=== PATIENT | female | born 1960 | race Caucasian/White ===

== ENCOUNTER → 2018-04-06 12:39 | Outpatient (CLI) | payer OTHER, SELFPAY ==
--- NOTE | 2018-04-06 13:03 | US_ITS ---
US thyroid HISTORY: Follow-up thyroid nodules, dysphasia ITS.REASON: THYROMEGALY ORDERING PHYSICIAN: Tsering Jones PATIENT AGE: 58 years Comparison: 05/15/2015 FINDINGS: The isthmus is slightly thickened 5 mm. There is a solid 1.1 x 0.7 cm nodule within the isthmus not significantly changed. This is hypervascular. The right lobe measures 4.6 x 2.2 x 2.3 cm. The right lobe is 4.6 x 2.2 x 2.3 cm. There is heterogeneous echogenicity. 4 mm cyst upper pole 9 x 5 mm solid nodule with heterogeneous echogenicity mid polar region previously 0.7 x 0.3 cm Lobulated cystic lesion midpole at 0.8 x 0.5 cm which is developed in the interval. 0.7 x 0.4 cm solid appearing nodule in the lower pole not significant change. Mixed 0.5 x 0.6 cm nodule in the lower pole 0.6 cm mixed nodule be lower pole The left lobe is 4.3 x 1.9 x 1.3 cm. 3 mm hypoechoic nodule upper pole 5 mm hypoechoic nodule mid polar region with central echogenic focus not readily apparent on the previous exam. 4 mm cystic nodule lower pole not apparent previously. IMPRESSION: Enlarged thyroid gland with multiple bilateral thyroid nodules as detailed above. The dominant nodule within the isthmus is not significantly changed
[2018-04-06 14:34] LABS: Alanine Aminotransferase 39 U/L (12-78); Albumin Level 3.7 gm/dL (3.4-5.0); Alkaline Phosphatase 87 U/L (46-116); Anion Gap 10.9 mEq/L (5-15); Aspartate Amino Transferase 26 U/L (15-37); Bilirubin,Total 0.6 mg/dL (0.2-1.0); Blood Urea Nitrogen 13 mg/dL (7-18); Calcium 9.2 mg/dL (8.5-10.1); Carbon Dioxide 30 mmol/L (21.0-32.0); Chloride 102 mmol/L (98-107); Creatinine,Serum 0.89 mg/dL (0.55-1.02); Estimated Glomerular Filt Rate 65 ml/min (>60); Free Thyroxine Index 3.9 ug/dL (5.93-13.13); GFR (African American) 79 ML/MIN (>60); Globulin 3.8 gm/dl (1.3-3.2); Glucose 89 mg/dL (74-106); Potassium 3.9 mmoL/L (3.5-5.1); Sodium 139 mmol/L (136-145); T4 (Thyroxine) 11.4 ug/dl (4.7-13.3); Thyroid Stimulating Hormone 1.75 uIU/ml (0.358-3.740); Total Protein,Serum 7.5 gm/dL (6.4-8.2); Triiodothryronine (T3) Uptake 34 % (31-39)
[2018-04-06 15:09] LABS: Basophils % 0.5 % (0.1-2.0); Eosinophils # 0.1 K/mm3 (0.0-0.4); Eosinophils % 1.1 % (0.1-12.0); Hematocrit 43.9 % (37.0-47.0); Hemoglobin 14.7 g/dL (12.2-16.2); Lymphocytes # 2.1 K/mm3 (0.7-4.5); Lymphocytes % 27.1 K/mm3 (10-50); Mean Corpuscular HGB Conc 33.5 g/dL (31.8-35.4); Mean Corpuscular Hemoglobin 28.6 pg (27.0-31.2); Mean Corpuscular Volume 85.3 fl (81-99); Mean Platelet Volume 9.2 fl (7.4-10.4); Monocytes # 0.3 K/mm3 (0.1-1.0); Monocytes % 3.9 % (1.7-9.3); Neutrophils # 5.1 K/mm3 (1.8-7.8); Neutrophils % 67.2 % (37.0-80.0); Platelet Count 244 K/mm3 (142-424); Red Blood Count 5.15 M/mm3 (4.20-5.40); Red Cell Distribution Width 12.8 % (11.5-17.5); White Blood Count 7.6 K/mm3 (4.8-10.8)
[2018-04-07 18:20] LABS: Thyroid Peroxidase Antibodies 10 IU/mL (0-34); Vitamin D 25 Hydroxy 18.7 ng/mL (30.0-100.0)
[2018-04-09 03:30] LABS: Calcitonin <2.0 pg/mL (0.0-5.0)
[2018-04-10 06:11] LABS: Thyroid Stimulating Immunoglob <0.10 IU/L (0.00-0.55)
== END ==
PROVIDERS: Family Provider Internal Medicine Adolescent Medicine; PCP Nurse Practitioner Family; Visit Provider Nurse Practitioner Family
DX: E04.9 Nontoxic goiter, unspecified (principal)
CPT/HCPCS: 36415; 76536; 80053; 82308; 82652; 84436; 84443; 84445; 84479; 85025; 86376

== ENCOUNTER → 2019-02-27 11:19 | Outpatient (CLI) | payer OTHER, SELFPAY ==
[2019-02-27 13:38] LABS: Basophils % 0.6 % (0.1-2.0); Eosinophils # 0.1 K/mm3 (0.0-0.4); Eosinophils % 0.8 % (0.1-12.0); Hematocrit 38.8 % (37.0-47.0); Hemoglobin 13.1 g/dL (12.2-16.2); Lymphocytes # 1.9 K/mm3 (0.7-4.5); Lymphocytes % 27.4 % (10-50); Mean Corpuscular HGB Conc 33.8 g/dL (31.8-35.4); Mean Corpuscular Hemoglobin 28.8 pg (27.0-31.2); Mean Corpuscular Volume 85.3 fl (81-99); Mean Platelet Volume 8.4 fl (7.4-10.4); Monocytes # 0.4 K/mm3 (0.1-1.0); Monocytes % 5.3 % (1.7-9.3); Neutrophils # 4.6 K/mm3 (1.8-7.8); Neutrophils % 65.9 % (37.0-80.0); Platelet Count 224 K/mm3 (142-424); Red Blood Count 4.55 M/mm3 (4.20-5.40); Red Cell Distribution Width 12.9 % (11.5-17.5); White Blood Count 6.9 K/mm3 (4.8-10.8)
[2019-02-27 15:35] LABS: Alanine Aminotransferase 32 U/L (12-78); Albumin Level 3.6 gm/dL (3.4-5.0); Alkaline Phosphatase 77 U/L (46-116); Anion Gap 13.5 mEq/L (5-15); Aspartate Amino Transferase 21 U/L (15-37); Bilirubin,Total 0.5 mg/dL (0.2-1.0); Blood Urea Nitrogen 11 mg/dL (7-18); Calcium 9.2 mg/dL (8.5-10.1); Carbon Dioxide 27 mmol/L (21.0-32.0); Chloride 104 mmol/L (98-107); Chol/HDL Ratio 4.4 (1-3.5); Cholesterol 219 mg/dL (140-200); Creatinine,Serum 0.89 mg/dL (0.55-1.02); Estimated Glomerular Filt Rate 65 ml/min (>60); Free T4 (Free Thyroxine) 1.26 ng/dl (0.76-1.46); GFR (African American) 79 ML/MIN (>60); Globulin 3.5 gm/dl (1.3-3.2); Glucose 93 mg/dL (74-106); HDL Cholesterol 50 mg/dL (29-89); LDL Cholesterol 150 mg/dL (0-130); Potassium 3.5 mmoL/L (3.5-5.1); Sodium 141 mmol/L (136-145); Thyroid Stimulating Hormone 1.38 uIU/ml (0.358-3.740); Total Protein,Serum 7.1 gm/dL (6.4-8.2); Triglycerides 95 mg/dL (30-200); VLDL Cholesterol 19 mg/dL (0-40)
[2019-03-01 09:45] LABS: Vitamin B12 443 pg/mL (232-1245)
== END ==
PROVIDERS: PCP Nurse Practitioner Family; Visit Provider Nurse Practitioner Family
DX: E04.1 Nontoxic single thyroid nodule (principal); E04.9 Nontoxic goiter, unspecified; E78.5 Hyperlipidemia, unspecified; E55.9 Vitamin D deficiency, unspecified; I10 Essential (primary) hypertension; R53.81 Other malaise
CPT/HCPCS: 36415; 80053; 80061; 82607; 82652; 84439; 84443; 85025

== ENCOUNTER → 2020-04-08 09:29 | Outpatient (CLI) | payer OTHER, SELFPAY ==
[2020-04-08 13:34] LABS: Basophils # 0.1 K/mm3 (0-0.2); Basophils % 1.2 % (0.1-2.0); Eosinophils # 0.1 K/mm3 (0.0-0.4); Eosinophils % 1.7 % (0.1-12.0); Hematocrit 43.7 % (37.0-47.0); Hemoglobin 14.1 g/dL (12.2-16.2); Lymphocytes % 28.7 % (10-50); Mean Corpuscular HGB Conc 32.4 g/dL (31.8-35.4); Mean Corpuscular Hemoglobin 28.9 pg (27.0-31.2); Mean Corpuscular Volume 89.3 fl (81-99); Monocytes # 0.4 K/mm3 (0.1-1.0); Monocytes % 5.1 % (1.7-9.3); Neutrophils # 4.3 K/mm3 (1.8-7.8); Neutrophils % 63.4 % (37.0-80.0); Platelet Count 235 K/mm3 (142-424); Red Cell Distribution Width 12.6 % (11.5-17.5); White Blood Count 6.8 K/mm3 (4.8-10.8)
[2020-04-08 13:51] LABS: Chloride 100 mmol/L (98-107); Potassium 3.9 mmoL/L (3.5-5.1); Sodium 138 mmol/L (136-145)
[2020-04-08 13:53] LABS: Alanine Aminotransferase 20 U/L (12-78); Alkaline Phosphatase 70 U/L (38-126); Aspartate Amino Transferase 29 U/L (14-36); Bilirubin,Total 0.6 mg/dl (0.2-1.3); Blood Urea Nitrogen 13 mg/dl (7-17); Estimated Glomerular Filt Rate 64 ml/min (>60); GFR (African American) 77 ML/MIN (>60)
[2020-04-08 13:54] LABS: Albumin Level 3.8 g/dl (3.5-5.0); Albumin/Globulin Ratio 1.3 (1.1-1.8); Anion Gap 10.9 mEq/L (5-15); Calcium 9.7 mg/dl (8.4-10.2); Carbon Dioxide 31 mmol/L (22.0-30.0); Chol/HDL Ratio 4.3 (1-3.5); Cholesterol 228 mg/dl (140-200); Glucose 104 mg/dl (74-100); HDL Cholesterol 53 mg/dl (40-60); Total Protein,Serum 6.8 g/dl (6.3-8.2); Triglycerides 137 mg/dl (30-150); VLDL Cholesterol 27 mg/dL (0-40)
[2020-04-08 18:09] LABS: 25-OH Vitamin D, Total 25.5 ng/mL (30-100)
== END ==
PROVIDERS: Visit Provider Internal Medicine Adolescent Medicine
DX: E78.5 Hyperlipidemia, unspecified (principal); E55.9 Vitamin D deficiency, unspecified; I10 Essential (primary) hypertension
CPT/HCPCS: 36415; 80053; 80061; 82306; 85025

== ENCOUNTER → 2021-02-09 18:22 | Outpatient (CLI) | payer OTHER, SELFPAY ==
[2021-02-09 19:09] LABS: Basophils # 0.1 K/mm3 (0-0.2); Basophils % 1.7 % (0.1-2.0); Eosinophils # 0.1 K/mm3 (0.0-0.4); Eosinophils % 1.5 % (0.1-12.0); Hematocrit 41.9 % (37.0-47.0); Hemoglobin 14.5 g/dL (12.2-16.2); Lymphocytes # 1.7 K/mm3 (0.7-4.5); Lymphocytes % 24.1 % (10-50); Mean Corpuscular HGB Conc 34.6 g/dL (31.8-35.4); Mean Corpuscular Hemoglobin 29.1 pg (27.0-31.2); Mean Corpuscular Volume 84.1 fl (81-99); Mean Platelet Volume 9.6 fl (7.4-10.4); Monocytes # 0.4 K/mm3 (0.1-1.0); Monocytes % 5.1 % (1.7-9.3); Neutrophils # 4.8 K/mm3 (1.8-7.8); Neutrophils % 67.6 % (37.0-80.0); Platelet Count 235 K/mm3 (142-424); Red Blood Count 4.98 M/mm3 (4.20-5.40); Red Cell Distribution Width 13.3 % (11.5-17.5); White Blood Count 7.2 K/mm3 (4.8-10.8)
[2021-02-09 19:14] LABS: Alanine Aminotransferase 23 U/L (12-78); Albumin Level 4.3 g/dl (3.5-5.0); Albumin/Globulin Ratio 1.4 (1.1-1.8); Alkaline Phosphatase 83 U/L (38-126); Anion Gap 14.6 mEq/L (5-15); Aspartate Amino Transferase 49 U/L (14-36); Bilirubin,Total 0.8 mg/dl (0.2-1.3); Blood Urea Nitrogen 15 mg/dl (7-17); Calcium 9.3 mg/dl (8.4-10.2); Carbon Dioxide 29 mmol/L (22.0-30.0); Chloride 100 mmol/L (98-107); Estimated Glomerular Filt Rate 64 ml/min (>60); GFR (African American) 77 ML/MIN (>60); Glucose 94 mg/dl (74-100); Potassium 3.6 mmoL/L (3.5-5.1); Sodium 140 mmol/L (136-145); Total Protein,Serum 7.3 g/dl (6.3-8.2)
[2021-02-09 19:59] LABS: Vitamin B12 353 pg/mL (239-931)
[2021-02-09 20:30] LABS: Hemoglobin A1C 5.1 % (4.0-6.0)
[2021-02-09 20:55] LABS: T4 (Thyroxine) 14.2 ug/dl (5.53-11.0); Triiodothryronine (T3) Uptake 28 % (23.5-40.5)
[2021-02-09 21:08] LABS: Thyroid Stimulating Hormone 1.06 uIU/mL (0.465-4.68)
[2021-02-09 21:37] LABS: 25-OH Vitamin D, Total 29.2 ng/mL (30-100)
== END ==
PROVIDERS: Visit Provider Internal Medicine Adolescent Medicine
DX: G60.9 Hereditary and idiopathic neuropathy, unspecified (principal); E55.9 Vitamin D deficiency, unspecified
CPT/HCPCS: 80053; 82306; 82607; 83036; 84436; 84443; 84479; 85025

== ENCOUNTER 2021-12-10 18:56 | Emergency (ER) | payer OTHER, SELFPAY ==
--- NOTE | 2021-12-10 20:06 | HMH.EDUTC ---
[facility] Clinical Impression: Viral syndrome, COVID-19, Bronchitis Disposition: Home, Self-Care Condition on Discharge: Good Instructions: DI for COVID-19 (Suspected or Confirmed ), Preventing the Spread of Coronavirus Discharge Instructions Additional Instructions: Drink plenty of fluids. Take tylenol or ibuprofen for pain or fever. Take the medications as directed. Follow up with your regular doctor. GO TO THE ER FOR ANY WORSENING SYMPTOMS Quarantine until you know the results of your covid-19 test. Notify your school or workplace of your results and follow their instructions regarding return to work/school. Prescriptions: Ondansetron [Zofran 4mg ODT] 4 mg PO Q8HP PRN #12 tab PRN Reason: Nausea Transmission Status: Received by [facility] Benzonatate [Benzonatate 100mg cap] 100 mg PO TIDP PRN #30 cap PRN Reason: Cough Transmission Status: Received by [facility] methylPREDNISolone [Medrol] 4 mg PO DIRECTED 6 Days #21 packet Transmission Status: Received by [facility] Azithromycin [Z-Shaji 250mg Tab*] 250 mg PO UD DOSE PK #6 tab Transmission Status: Received by [facility] Referrals: David Cote MD [Primary Care Provider] - Time of Disposition: 20:17 Medical Decision Making - Medical Records Medical records reviewed: No: I reviewed the patient's medical records. - Og Inquiry Pt receiving controlled substance: No Vital Signs: 12/10/21 20:15 12/10/21 20:19 Temperature 98.8 F 98.8 F Temperature Source Oral Pulse Rate 90 Pulse Rate [Left Radial] 90 Respiratory Rate 17 17 Blood Pressure 127/84 Blood Pressure [Right Arm] 127/84 Blood Pressure Mean [Right Arm] 98 02 Sat by Pulse Oximetry 96 Orders (Tests/Meds): ORDERS Category Date Time Status Covid-19 Nasal PCR ([facility]) Routine Lab 12/10/21 19:45 [place]ceived [facility] [place] - General Stated complaint: covid test Time Seen by Provider: 12/10/21 20:06 - History of Present Illness Provider Complaint: She has had body aches, low grade fever, chills and she has felt bad for the past 2 days. She took a home covid-19 test that was positive, so she came here to have a pcr test to verify that. - Related Data Previous Rx's Medication Instructions Recorded Azithromycin [Z-Shaji 250mg Tab*] 250 mg PO UD DOSE PK #6 tab 12/10/21 Benzonatate [Benzonatate 100mg 100 mg PO TIDP PRN #30 cap 12/10/21 cap] Ondansetron [Zofran 4mg ODT] 4 mg PO Q8HP PRN #12 tab 12/10/21 methylPREDNISolone [Medrol] 4 mg PO DIRECTED 6 Days #21 12/10/21 packet Allergies Allergy/AdvReac Type Severity Reaction Status Date / Time No Known Drug Allergies Allergy Unknown Unverified 06/27/17 14:49 [facility] History - Hepatitis A Screen Attestation statement:: This patient has been screened for Hepatitis A risk factors. I have reviewed the patient's past medical history: Yes ROS Obtained: Yes All systems reviewed & no additional complaints - Constitutional Constitutional: Reports as per HPI - Eyes Eyes: Denies eye discharge - ENT Ears, Nose, Mouth, and Throat: Reports as per HPI - Cardiovascular Cardiovascular: Denies chest pain - Respiratory Respiratory: Denies chest congestion, Reports cough Physical Exam - General General appearance: alert, in no apparent distress - Head Head exam: atraumatic, normocephalic, normal inspection - Eye Eye exam: Present: normal appearance, PERRL, EOMI - ENT ENT exam: Present: normal exam, normal oropharynx, mucous membranes moist, TM's normal bilaterally, normal external ear exam - Neck Neck exam: Present: normal inspection, full ROM, trachea midline. Absent: meningismus, lymphadenopathy - Chest Chest inspection: Present: normal inspection, symmetric chest wall rise. Absent: tenderness - Respiratory Respiratory exam: Present: normal lung sounds bilaterally. Absent: respiratory distress - Cardiovascular Cardi
[2021-12-10 20:15] VITALS: BP 127/84; PULSE 90; RESP 17; TEMP 37.1; O2SAT 96; BMI 31.4
[2021-12-10 20:19] VITALS: BP 127/84; PULSE 90; RESP 17; TEMP 37.1
== END 2021-12-10 20:19 | disposition home or self-care (01) ==
PROVIDERS: Emergency Provider Nurse Practitioner Family; PCP Internal Medicine Adolescent Medicine
DX: U07.1 COVID-19 (principal); J20.8 Acute bronchitis due to other specified organisms
CPT/HCPCS: 99212; C9803; G0463; U0003; U0005

== ENCOUNTER → 2021-12-29 09:30 | Outpatient (CLI) | payer OTHER, SELFPAY ==
[2021-12-28 17:10] LABS: Alanine Aminotransferase 28 U/L (12-78); Albumin Level 3.5 g/dl (3.5-5.0); Albumin/Globulin Ratio 1.3 (1.1-1.8); Alkaline Phosphatase 81 U/L (38-126); Anion Gap 7.4 mEq/L (5-15); Aspartate Amino Transferase 32 U/L (14-36); Bilirubin,Total 0.2 mg/dl (0.2-1.3); Blood Urea Nitrogen 5 mg/dl (7-17); Carbon Dioxide 32 mmol/L (22.0-30.0); Chloride 101 mmol/L (98-107); Chol/HDL Ratio 4.2 (1-3.5); Cholesterol 198 mg/dl (140-200); Estimated Glomerular Filt Rate 85 ml/min (>60); GFR (African American) 103 ML/MIN (>60); Globulin 2.7 g/dL (1.3-3.2); Glucose 92 mg/dl (74-100); HDL Cholesterol 47 mg/dl (40-60); Potassium 3.4 mmoL/L (3.5-5.1); Sodium 137 mmol/L (136-145); Total Protein,Serum 6.2 g/dl (6.3-8.2); Triglycerides 111 mg/dl (30-150); VLDL Cholesterol 22 mg/dL (0-40)
[2021-12-28 17:18] LABS: Basophils # 0.1 K/mm3 (0-0.2); Basophils % 0.8 % (0.1-2.0); Eosinophils # 0.1 K/mm3 (0.0-0.4); Eosinophils % 1.9 % (0.1-12.0); Hemoglobin 13.4 g/dL (12.2-16.2); Lymphocytes # 1.9 K/mm3 (0.7-4.5); Lymphocytes % 24.5 % (10-50); Mean Corpuscular HGB Conc 34.3 g/dL (31.8-35.4); Mean Corpuscular Volume 87.7 fl (81-99); Mean Platelet Volume 9.4 fl (7.4-10.4); Monocytes # 0.5 K/mm3 (0.1-1.0); Monocytes % 6.6 % (1.7-9.3); Neutrophils % 66.2 % (37.0-80.0); Platelet Count 233 K/mm3 (142-424); Red Blood Count 4.45 M/mm3 (4.20-5.40); Red Cell Distribution Width 13.3 % (11.5-17.5); White Blood Count 7.6 K/mm3 (4.8-10.8)
[2021-12-28 17:21] LABS: Direct LDL Cholesterol 115.18 mg/dL (100-129)
[2021-12-28 17:41] LABS: Thyroid Stimulating Hormone 0.74 uIU/mL (0.465-4.68)
[2021-12-28 18:00] LABS: Vitamin B12 974 pg/mL (239-931)
[2021-12-28 18:10] LABS: Iron 71 ug/dL (37-170)
[2021-12-28 18:19] LABS: Total Iron Binding Capacity 223 ug/dL (265-497)
[2022-01-14 17:11] LABS: 1,25 Dihydroxy Vitamin D 59 pg/mL (.); 1,25-Dihydroxy, Vitamin D-2 <10 pg/mL (.); 1,25-Dihydroxy, Vitamin D-3 59 pg/mL (.)
== END ==
PROVIDERS: Visit Provider Physician Assistant
DX: Z00.00 Encounter for general adult medical examination without abnormal findings (principal); I10 Essential (primary) hypertension; E55.9 Vitamin D deficiency, unspecified; E53.8 Deficiency of other specified B group vitamins; R53.83 Other fatigue
CPT/HCPCS: 80053; 80061; 82607; 82652; 83540; 83550; 84443; 85025

== ENCOUNTER → 2022-01-06 12:56 | Outpatient (CLI) | payer OTHER, SELFPAY ==
--- NOTE | 2022-01-06 12:56 | MR_ITS ---
FINAL REPORT CLINICAL HISTORY: Bilateral leg weakness, burning, giving out. LOW BACK PAIN FOR YEARS. FALLING FREQUENTLY. BILATERAL LEG PAIN, NUMBNESS AND TINGLING. NO INJURY OR TRAUMA. FINDINGS: Multiplanar MR imaging of the lumbar spine was performed without contrast. On the sagittal T2-weighted images, disc degeneration is seen at multiple levels. The vertebral alignment is normal. There is no evidence of fracture. The conus has an unremarkable appearance. L1-2: No significant canal stenosis or neural foraminal narrowing. L2-3: No significant canal stenosis or neural foraminal narrowing. L3-4: An annular bulge is present. There is no significant canal stenosis or neural foraminal narrowing. L4-5: An annular bulge is present. Facet arthropathy and osteophytes are present. There is moderate right and mild left neural foraminal narrowing. L5-S1: An annular bulge is present with mild right neural foraminal narrowing. IMPRESSION: Multilevel degenerative change and spondylosis. Reviewed, Interpreted and Dictated by Carlos Brand III, MD Transcribed by Valeri Hartman Authenticated and [facility]
== END ==
PROVIDERS: PCP Internal Medicine Adolescent Medicine; Visit Provider Physician Assistant
DX: G62.9 Polyneuropathy, unspecified (principal); R29.898 Other symptoms and signs involving the musculoskeletal system
CPT/HCPCS: 72148; 76376

== ENCOUNTER 2022-01-17 07:47 | Outpatient (RCR) | payer OTHER, SELFPAY ==
--- NOTE | 2022-01-17 09:51 | HMH.PTOPEV ---
PT Outpatient Evaluation Rehab PT Outpatient Evaluation Start: 01/17/22 07:55 Freq: Status: Active Protocol: Document 01/17/22 07:55 PDESERLA NENAX (Rec: 01/17/22 09:49 PDESEROUX [id number]) Electronically Signed By Kevin Evans, PT 01/17/22 07:55 Outpatient Therapy Subjective History Subjective History Pt. is a 62 year old female who presents to [facility] Outpatient Physical Therapy Services in [place] for the initial evaluation this date( 01/17/22) w/ c/o chronic and constant lumbar/BLE(L>R) P!, numbness, tingling, and falls of insidious onset that had progressively worsened since last Fall. However, pt. reports having a chronic history of LBP! and BLE numbness/tingling, but states symptoms started to worsen in bilateral hips and the lumbar spine last Fall. Pt. c/o numbness/tingling first originating in bilateral toes and feet years ago, but states symptoms began to progress superiorly towards bilateral hips and the lumbar spine last Fall. Pt. reports she was diagnosed w/ Neuropathy when symptoms first originated in bilateral toes/ft. Pt. reports symptoms worsen w/ bending over and picking up grocery bags, prolonged sitting and driving, and twisting. Pt. reports having some symptom relief w/ resting and icing the lumabr spine. Recent diagnostic imaging(MRI) positive for multi-level DDD, spondylosis, osteophytes, and disc bulges per pt. report. Pt . denies having injections for current complaint. Pt. also denies having any bowel/ bladder dysfunction at this time. Pt. also denies pacemaker, denies latex nor any medicational allergies.
== END 2022-02-01 09:27 | disposition home or self-care (01) ==
LOC: PT.CARL 07:47
PROVIDERS: PCP Internal Medicine Adolescent Medicine; Visit Provider Physician Assistant
DX: M51.36 Other intervertebral disc degeneration, lumbar region (principal)
CPT/HCPCS: 97010; 97014; 97110; 97140; 97163; G0283

== ENCOUNTER → 2023-01-09 15:52 | Outpatient (CLI) | payer OTHER, SELFPAY ==
--- NOTE | 2023-01-09 15:52 | MM_ITS ---
PROCEDURE INFORMATION: Exam: Bilateral Screening 3D Mammography Exam date and time: 01/09/2023 3:43 PM Age: 63 years old Clinical indication: Baseline. No family history of breast cancer. TECHNIQUE: Imaging protocol: Bilateral Screening tomosynthesis and 2D mammography including computer-aided detection (CAD) when performed. COMPARISON: No relevant prior studies available.If prior mammograms are provided, I am happy to add an addendum. FINDINGS: MAMMOGRAPHY: Breast composition: There are scattered areas of fibroglandular density. Mass: None. Architectural distortion: None. Calcifications: No suspicious calcifications. Asymmetric density: None. Skin thickening: None. Axillary adenopathy: None. IMPRESSION: No mammographic evidence of malignancy. Annual screening is recommended unless otherwise clinically indicated. ASSESSMENT: BI-RADS Category 1: Negative
[2023-01-09 16:46] LABS: Basophils % 0.5 % (0.1-2.0); Eosinophils # 0.2 K/mm3 (0.0-0.4); Hematocrit 44.1 % (37.0-47.0); Hemoglobin 14.5 g/dL (12.2-16.2); Lymphocytes # 2.1 K/mm3 (0.7-4.5); Lymphocytes % 26.9 % (10-50); Mean Corpuscular HGB Conc 32.8 g/dL (31.8-35.4); Mean Corpuscular Hemoglobin 28.3 pg (27.0-31.2); Mean Corpuscular Volume 86.2 fl (81-99); Mean Platelet Volume 10.2 fl (7.4-10.4); Monocytes # 0.4 K/mm3 (0.1-1.0); Monocytes % 5.5 % (1.7-9.3); Neutrophils # 5.1 K/mm3 (1.8-7.8); Neutrophils % 65.2 % (37.0-80.0); Platelet Count 235 K/mm3 (142-424); Red Blood Count 5.12 M/mm3 (4.20-5.40); White Blood Count 7.9 K/mm3 (4.8-10.8)
[2023-01-09 16:48] LABS: Alanine Aminotransferase 30 U/L (12-78); Albumin/Globulin Ratio 1.3 (1.1-1.8); Alkaline Phosphatase 94 U/L (38-126); Anion Gap 13.8 mEq/L (5-15); Aspartate Amino Transferase 40 U/L (14-36); Bilirubin,Total 0.7 mg/dl (0.2-1.3); Blood Urea Nitrogen 16 mg/dl (7-17); Calcium 9.2 mg/dl (8.4-10.2); Carbon Dioxide 28 mmol/L (22.0-30.0); Chloride 101 mmol/L (98-107); Cholesterol 259 mg/dl (140-200); Estimated Glomerular Filt Rate 63 ml/min (>60); GFR (African American) 77 ML/MIN (>60); Glucose 106 mg/dl (74-100); HDL Cholesterol 52 mg/dl (40-60); Potassium 3.8 mmoL/L (3.5-5.1); Sodium 139 mmol/L (136-145); Triglycerides 134 mg/dl (30-150); VLDL Cholesterol 27 mg/dL (0-40)
[2023-01-09 16:59] LABS: Direct LDL Cholesterol 160.22 mg/dL (100-129)
[2023-01-09 17:05] LABS: T4 (Thyroxine) 13.3 ug/dl (5.53-11.0); Triiodothryronine (T3) Uptake 31 % (23.5-40.5)
[2023-01-09 17:06] LABS: 25-OH Vitamin D, Total 53.7 ng/mL (30-100)
[2023-01-09 17:19] LABS: Thyroid Stimulating Hormone 1.79 uIU/mL (0.465-4.68)
[2023-01-09 17:38] LABS: Vitamin B12 896 pg/mL (239-931)
== END ==
PROVIDERS: PCP Family Medicine; Visit Provider Family Medicine
DX: Z00.00 Encounter for general adult medical examination without abnormal findings (principal); Z12.31 Encounter for screening mammogram for malignant neoplasm of breast; I10 Essential (primary) hypertension; E04.1 Nontoxic single thyroid nodule; R53.83 Other fatigue; E55.9 Vitamin D deficiency, unspecified; E53.8 Deficiency of other specified B group vitamins
CPT/HCPCS: 77063; 77067; 80053; 80061; 82306; 82607; 84436; 84443; 84479; 85025

== ENCOUNTER → 2023-01-09 17:02 | Outpatient (CLI) | payer OTHER, SELFPAY ==
[2023-01-11 15:07] LABS: Hemoglobin A1C 5.3 % (4.0-6.0)
== END ==
PROVIDERS: PCP Family Medicine; Visit Provider Family Medicine
DX: R73.9 Hyperglycemia, unspecified (principal)
CPT/HCPCS: 83036

== ENCOUNTER → 2023-02-15 10:36 | Outpatient (CLI) | payer OTHER, SELFPAY ==
--- NOTE | 2023-02-15 10:57 | XR_ITS ---
FINAL REPORT TECHNIQUE: 6 views of the cervical spine CLINICAL HISTORY: neck pain COMPARISON: None FINDINGS: Cervical spine 6 views: There is mild degenerative change identified in the cervical spine with multiple osteophytes. No evidence of acute fracture or dislocation is identified. There is mild bilateral C6-7 neural foraminal narrowing. There is mild left C5-6 neural foraminal narrowing. IMPRESSION: Mild degenerative change as described. Reviewed, Interpreted and Dictated by Carlos Brand III, MD Transcribed by Edwina Mitchell Authenticated and [facility]
[2023-02-15 13:20] LABS: Free T4 (Free Thyroxine) 1.11 ng/dl (0.78-2.19)
[2023-02-15 13:33] LABS: Thyroid Stimulating Hormone 1.39 uIU/mL (0.465-4.68)
[2023-02-15 14:09] LABS: Folate 6.62 ng/mL
[2023-02-16 09:19] LABS: Triiodothyronine (T3) Free 2.7 pg/mL (2.0-4.4)
== END ==
PROVIDERS: Nurse Practitioner Family; PCP Family Medicine; Visit Provider Specialist
DX: G62.9 Polyneuropathy, unspecified (principal); M54.2 Cervicalgia; R20.0 Anesthesia of skin; R20.2 Paresthesia of skin; E53.8 Deficiency of other specified B group vitamins; R94.6 Abnormal results of thyroid function studies
CPT/HCPCS: 36415; 72050; 82746; 84439; 84443; 84481

== ENCOUNTER 2024-05-10 10:22 | Outpatient (CLI) | payer OTHER, SELFPAY ==
[2024-05-10 16:35] LABS: Basophils # 0.1 K/mm3 (0-0.2); Eosinophils # 0.1 K/mm3 (0.0-0.4); Eosinophils % 1.9 % (0.1-12.0); Hematocrit 43.5 % (37.0-47.0); Hemoglobin 14.8 g/dL (12.2-16.2); Lymphocytes # 1.8 K/mm3 (0.7-4.5); Lymphocytes % 25.4 % (10-50); Mean Corpuscular Hemoglobin 29.7 pg (27.0-31.2); Mean Corpuscular Volume 87.5 fl (81-99); Mean Platelet Volume 9.4 fl (7.4-10.4); Monocytes # 0.4 K/mm3 (0.1-1.0); Monocytes % 5.6 % (1.7-9.3); Neutrophils # 4.8 K/mm3 (1.8-7.8); Neutrophils % 66.1 % (37.0-80.0); Platelet Count 230 K/mm3 (142-424); Red Blood Count 4.97 M/mm3 (4.20-5.40); Red Cell Distribution Width 13.4 % (11.5-17.5); White Blood Count 7.2 K/mm3 (4.8-10.8)
[2024-05-10 17:07] LABS: Alanine Aminotransferase 23 U/L (12-78); Albumin Level 4.2 g/dl (3.5-5.0); Albumin/Globulin Ratio 1.6 (1.1-1.8); Alkaline Phosphatase 72 U/L (38-126); Anion Gap 11.7 mEq/L (5-15); Aspartate Amino Transferase 35 U/L (14-36); Bilirubin,Total 0.8 mg/dl (0.2-1.3); Blood Urea Nitrogen 12 mg/dl (7-17); Calcium 9.2 mg/dl (8.4-10.2); Carbon Dioxide 29 mmol/L (22.0-30.0); Chloride 104 mmol/L (98-107); Chol/HDL Ratio 4.3 (1-3.5); Cholesterol 229 mg/dl (140-200); Estimated Glomerular Filt Rate 72 ml/min (>60); GFR (African American) 87 ML/MIN (>60); Globulin 2.7 g/dL (1.3-3.2); Glucose 65 mg/dl (74-100); HDL Cholesterol 53 mg/dl (40-60); Potassium 3.7 mmoL/L (3.5-5.1); Sodium 141 mmol/L (136-145); Total Protein,Serum 6.9 g/dl (6.3-8.2); Triglycerides 133 mg/dl (30-150); VLDL Cholesterol 27 mg/dL (0-40)
[2024-05-10 17:17] LABS: Direct LDL Cholesterol 156.41 mg/dL (100-129)
[2024-05-10 17:24] LABS: 25-OH Vitamin D, Total 48.2 ng/mL (30-100)
[2024-05-10 17:37] LABS: Thyroid Stimulating Hormone 2.45 uIU/mL (0.465-4.68)
[2024-05-10 17:41] LABS: Hemoglobin A1C 5.1 % (4.0-6.0)
[2024-05-10 17:57] LABS: Vitamin B12 > 1000 pg/mL (239-931)
[2024-05-10 22:57] LABS: HIV (1&2) Antibody Rapid NONREACTIVE (NONREACTIVE)
[2024-05-11 05:11] LABS: HCV Ab Non Reactive (Non Reactive)
== END 2024-05-10 23:59 | disposition home or self-care (01) ==
LOC: LAB.DROPOF 05-13 10:22
PROVIDERS: PCP Family Medicine; Visit Provider Family Medicine
DX: K21.9 Gastro-esophageal reflux disease without esophagitis (principal); E78.5 Hyperlipidemia, unspecified; E53.8 Deficiency of other specified B group vitamins; E55.9 Vitamin D deficiency, unspecified; I10 Essential (primary) hypertension
CPT/HCPCS: 80050; 80053; 80061; 82306; 82607; 83036; 84443; 85025; 86803; 87389

== ENCOUNTER 2024-05-24 09:18 | Outpatient (CLI) | payer OTHER, SELFPAY ==
--- NOTE | 2024-05-24 09:18 | US_ITS ---
FINAL REPORT CLINICAL HISTORY: HX NODULES - LARGE THYROID COMPARISON: None FINDINGS: THYROID ULTRASOUND: The right lobe of the thyroid gland measures 4.85 cm in length. The left lobe of the thyroid gland measures 3.85 cm in length. The isthmus measures 4 mm in thickness. There are multiple subcentimeter nodules bilaterally, some are hypoechoic while others are of mixed echogenicity. The dominant nodule is a 1.5 cm ovoid, hypoechoic, solid nodule, a TI-RADS category 4 nodule. IMPRESSION: Dominant thyroid nodule is an ovoid, hypoechoic, and solid, 1.5 cm in diameter, a TI-RADS category 4 nodule. Recommend biopsy for further evaluation. Multiple subcentimeter nodules as described. Reviewed, Interpreted and Dictated by Terence Villela MD Transcribed by Edwina Mitchell Authenticated and [facility]
== END 2024-05-24 23:59 | disposition home or self-care (01) ==
LOC: RAD 09:18
PROVIDERS: PCP Family Medicine; Visit Provider Family Medicine
DX: E04.1 Nontoxic single thyroid nodule (principal)
CPT/HCPCS: 76536

== ENCOUNTER 2024-05-31 09:02 | Outpatient (CLI) | payer OTHER, SELFPAY ==
--- NOTE | 2024-05-31 09:03 | US_ITS ---
FINAL REPORT CLINICAL HISTORY: thyroid nodule -- isthmus nodule thyroid fna -- ingrid schumacher FINDINGS: ULTRASOUND GUIDED THYROID BIOPSY HISTORY: Dominant isthmus nodule/mass. TECHNIQUE: Informed consent was obtained from the patient. Timeout procedure was performed prior to beginning. Limited sonographic evaluation of thyroid gland was performed to localize lesion of interest. The neck was prepped in a routine sterile fashion and locally anesthetized with 1% lidocaine. FNA was performed with 25-gauge needle under direct sonographic visualization. 4 passes were made. Cytology is pending. Patient did vasovagal after the first pass. Patient was monitored for 15-20 minutes following the procedure and was in good condition prior to leaving the department. CONCLUSION: 1. Technically successful thyroid fine needle aspiration of the dominant isthmus nodule. Reviewed, Interpreted and Dictated by Terence Villela MD Transcribed by Elsy Morel PA-C Authenticated and [facility]
== END 2024-05-31 23:59 | disposition home or self-care (01) ==
LOC: RAD 09:03
PROVIDERS: PCP Family Medicine; Visit Provider Family Medicine
DX: E04.1 Nontoxic single thyroid nodule (principal)
CPT/HCPCS: 76942

== ENCOUNTER 2025-02-09 14:27 | Emergency (ER) | payer MEDICARE, SELFPAY ==
--- OUTSIDE RECORDS SUMMARY | 2024-10-12 17:30 | XMS_ITS ---
Author Organization [facility] Address [address] [facility] [address] [place] [address] Care Team Providers Care Php Consultant Name Role Phone Tsering Jones Primary Care Provider Migration, Provider Unavailable Unavailable [facility] Conversion Encounter Medications Medication SIG (Take, [address] [place] [address] 10/12/2024 Provider Migration Essential (primary) hypertension I10 [...] Notes * Emely JAIMESDOB:[birth year] (65 yo F)Acc No.[id number]:10/12/2024 Patient: Emely RUIZ Provider: Katy Horn :1960 A ge:64 Y S ex:Female Date:10/12/2024 Address:[address] [place], [place] [id number] Pcp:Tsering Jones Subjective: * Chief Complaints: * 1 . [facility] To [facility] Conversion Encounter. * Medical History: * [...] Electronic signature of Prov ider Migration on 02/09/2025 at 02:45 PM EDT Sign off status: Pending * Provider: Katy yadav Migration Date: 0 10/12/2024 Generated for Ced turk/Erwin/Yonasitting on: 0 02/09/2025 02:45 PM EDT
[2025-02-09] VITALS (10 sets, daily range): BP systolic 102–147; BP diastolic 55–109; PULSE 61–92; RESP 13–19; TEMP 36.9–37.2; O2SAT 92–99; BMI 32.4
--- NOTE | 2025-02-09 14:29 | ECG_ITS ---
APPROVED REPORT Exam: Resting ECG HR:55 bpm ECG Measurements Heart Rate [address] 194 P 33 QRSd 104 QRS 40 QT 464 T 32 QTc 453 Conclusion SINUS BRADYCARDIA ABNORMAL ECG UNCONFIRMED REPORT Electronically signed by : KARTHIK ANGUIANO, 02/11/2025 04:20:24
--- NOTE | 2025-02-09 14:38 | XR_ITS ---
PROCEDURE INFORMATION: Exam: XR Chest Exam date and time: 02/09/2025 2:45 PM Age: 65 years old Clinical indication: Other: Syncope TECHNIQUE: Imaging protocol: Radiologic exam of the chest. Views: 1 view. COMPARISON: CR XR CERVICAL SPINE 5V 02/15/2023 10:59 AM FINDINGS: Lungs: Unremarkable. No consolidation. Pleural spaces: Unremarkable. No pleural effusion. No pneumothorax. Heart/Mediastinum: Unremarkable. No cardiomegaly. Bones/joints: Unremarkable. IMPRESSION: No acute findings.
--- NOTE | 2025-02-09 14:40 | ED_ITS ---
<Statement entered by Vance Mo MD - 02/09/25 23:30> I was consulted by the DENIS, and we discussed the complexity of the problems being addressed. I approved the treatment and management plan for this patient's care in the emergency department, thus performing a substantive portion of the medical decision making. Vance Mo MD, RANDA, FACEP Discharge Plan Disposition Patient Disposition: Home, Self-Care Prescriptions Prescriptions: New potassium chloride [Klor-Con M20] 20 mEq tablet,ER particles/crystals 20 meq PO BID 7 Days Qty: 14 0RF No Action cholecalciferol (vitamin D3) 25 mcg (1,000 unit) capsule 1,000 unit PO DAILY Qty: 90 0RF Rx Instructions: administer with meals albuterol sulfate 90 mcg/actuation HFA aerosol inhaler 1 inh inhalation QID PRN (Reason: shortness of breath or wheezing) 90 Days Qty: 6.7 3RF lisinopril-hydrochlorothiazide 10-12.5 mg tablet 1 tab PO DAILY 90 Days Qty: 90 0RF omeprazole 20 mg capsule,delayed release(DR/EC) 20 mg PO DAILY 90 Days Qty: 90 3RF rizatriptan [Maxalt] 10 mg tablet 10 mg PO Q2H MDD 30mg PRN (Reason: migraine headache) Qty: 90 3RF Rx Instructions: do not exceed 3 doses per 24 hrs Referrals Follow up/Referrals: Ruddy Jimenez MD [Staff Physician, Cardiology] - See instructions Activity Restrictions/Add. Instructions Additional Instructions/Restrictions: Today you were evaluated in the emergency department after syncopal episode. During your workup, you had lab work, chest x-ray and a CT scan. We found your potassium to be low, you were given IV and oral potassium while in the ED. I have given you a prescription for potassium, please take this as directed. It is important that you follow-up with your primary care provider to have this repeated and for follow-up evaluation. If your condition worsens at all, return to the ED. Clinical Impressions Clinical Impression: Hypokalemia Syncope Qualifiers: Syncope type: unspecified Qualified Code(s): R55 - Syncope and collapse Instructions Patient Instructions: DI for Syncope in Adults (Fainting), DI for Hypokalemia Print Language Print Language: Cymraes Discharge ED Provider: Shaun,Gricelda General Adult HPI General Chief complaint: Syncope Stated complaint: Sycopal episode Time Seen by Provider: 02/09/25 14:29 Mode of Arrival: EMS Source of Information: Patient and EMS Description of Symptoms (Recalled from ER Triage Doc. by RN): Pt brought to the ED for evaluation of 2 syncope episodes. Both episodes witnessed, stated she was LOC about 3-5 minutes. Denies blood thinners. PT stated she has been experiencing weakness and slight SOB for a week. EMS vitals 104/60 BP, 65 HR History of Present Illness HPI narrative: patient is a 65-year-old female PMHx HTN, HLD, migraines who presents to the ED after 2 syncopal episodes that occurred prior to arrival. Patient states she was sitting at her family reunion at the picnic table when she passed out and laid her head on the table. Patient's family who was present at bedside states that they attempted to carry her over to the car and she was in and out of consciousness over the next 5 to 7 minutes. Related Data Previous Rx's ?Medication ?Instructions ?Recorded cholecalciferol (vitamin D3) 25 1,000 unit PO DAILY #9 0 caps 12/28/21 mcg (1,000 unit) capsule albuterol sulfate 90 mcg/actuation 1 inh inhalation QI D PRN shortness 01/22/25 aerosol inhaler of breath or wheezing 90 day s #6.7 grams lisinopril 10 1 tab PO DAILY 90 days #90 t abs 01/22/25 mg-hydrochlorothiazide 12.5 mg tablet omeprazole 20 mg capsule,delayed 20 mg PO DAILY 90 day s #90 caps 01/22/25 release rizatriptan 10 mg tablet (Maxalt) 10 mg PO Q2H PRN yolanda manohar headache 01/22/25 #90 tabs potassium chloride 20 mEq 20 meq PO BID 7 days #14 tab s 02/09/25 tablet,extended release(part/cryst) (Klor-Con M) Allergies Allergy/AdvReac Type Severity Reaction Status Date / Time No Known Drug Allergies Allergy Unknown Verified 07/02/24 09:12 [facility] Disclaimer: The information contained in this section may have been updated after the patient was seen, as this information can be updated by other users. Medical History (Updated 02/09/25 @ 18:13 by Katiana Rodriguez APRN) Abnormal thyroid biopsy Multiple thyroid nodules Difficulty swallowing Numbness and tingling Neck pain Vitamin B12 deficiency Vitamin D deficiency Neuropathy Surgical History History of cholecystectomy History of delivery History of hysterectomy Family History Mother Cancer Father Cancer Social History Smoking Status: Never smoker alcohol intake: never substance use type: denies use current occupational status: retired Travel in the last 8 weeks?: None Other Medical History Have you received the Pneumonia Vaccine: No ROS Obtained: Yes Systems reviewed as appropriate & no additional complaints except as documented Physical Exam General General appearance: alert and in no apparent distress Head Head exam: atraumatic Eye Eye exam: Present PERRL and EOMI; Absent nystagmus Chest Chest inspection: Present normal inspection Respiratory Respiratory exam: Present normal lung sounds bilaterally; Absent respiratory distress Cardiovascular Cardiovascular exam: Present regular rate Abdominal Exam Abdominal exam: Present soft; Absent distention or tenderness Back Exam Back exam: Present full ROM Neurological Exam Neurological exam: Present alert and oriented X3 Skin Skin exam: Present warm and dry Medical Decision Making Medical Records Screening: Per USPSTF and CDC recommendations, given the prevalence of disease in our region, it is our hospital?s policy to screen for HIV and viral Hepatitis for all patients aged 18 and over and those with ongoing risk factors. Og Inquiry Pt receiving controlled substance: No Vital Signs: 02/09/25 14:32 02/09/25 15:01 02/09/25 15:30 Temperature 98.9 F Temperature Source Oral Pulse Rate 71 70 Pulse Rate [Left] 63 Respiratory Rate 19 14 18 Blood Pressure 110/67 102/55 L Blood Pressure [Left Arm] 115/55 L Blood Pressure Mean [Left Arm] 75 02 Sat by Pulse Oximetry 97 96 96 Oxygen Delivery Method Room Air 02/09/25 16:00 02/09/25 16:09 02/09/25 16:30 Temperature Temperature Source Pulse Rate 61 72 65 Pulse Rate [Left] Respiratory Rate 15 13 13 Blood Pressure 106/56 L 147/83 H 117/64 Blood Pressure [Left Arm] Blood Pressure Mean [Left Arm] 02 Sat by Pulse Oximetry 98 99 97 Oxygen Delivery Method Room Air 02/09/25 17:00 02/09/25 17:30 02/09/25 18:24 Temperature Temperature Source Pulse Rate 65 71 92 H Pulse Rate [Left] Respiratory Rate 16 18 17 Blood Pressure 139/76 141/109 H 124/82 Blood Pressure [Left Arm] Blood Pressure Mean [Left Arm] 02 Sat by Pulse Oximetry 97 98 92 L Oxygen Delivery Method 02/09/25 18:29 Temperature 98.4 F Temperature Source Pulse Rate 92 H Pulse Rate [Left] Respiratory Rate 17 Blood Pressure 124/82 Blood Pressure [Left Arm] Blood Pressure Mean [Left Arm] 02 Sat by Pulse Oximetry Oxygen Delivery Method Room Air Lab Data Lab Results 02/09/25 14:30: WBC 7.2, RBC 4.86, Hgb 13.8, Hct 40.2, MCV 82.7, MCH 28.4, MCHC 34.3, RDW 12.1, Plt Count 190, MPV 11.0 H, Neut % (Auto) 68.0, Lymph % (Auto) 19.1, Ida % (Auto) 10.0 H, Eos % (Auto) 1.5, Baso % (Auto) 0.8, Neut # (Auto) 4.9, Lymph # (Auto) 1.4, Ida # (Auto) 0.7, Eos # (Auto) 0.1, Baso # (Auto) 0.1, D-Dimer 0.89 H, Sodium 136, Potassium 2.9 L*, Chloride 102, Carbon Dioxide 25, Anion Gap 11.9, BUN 14, Creatinine 1.10 H, Estimated Creat Clear 71, Estimated GFR 50 L, Est GFR ( Amer) 60, Glucose 120 H, Calcium 9.7, Total Bilirubin 0.7, AST 39 H, ALT 27, Alkaline Phosphatase 89, Troponin I < 0.01, Total Protein 7.2, Albumin 4.3, Globulin 2.9, Albumin/Globulin Ratio 1.5 02/09/25 14:52: Urine Color Yellow, Urine Appearance Clear, Urine pH 6.0, Ur Specific [place] 1.025, Urine Protein Negative, Urine Glucose (UA) Negative, Urine Ketones Trace, Urine Blood Negative, Urine Nitrate Negative, Urine Bilirubin Negative, Urine Urobilinogen 1.0, Ur Leukocyte Esterase Negative, Urine RBC None, Urine WBC None, Ur Squamous Epith Cells Occasional, Urine Bacteria Trace, Urine HCG, Qual Negative 02/09/25 17:40: Troponin I < 0.01 02/09/25 18:20: Sodium 132 L, Potassium 3.6 D, Chloride 103, Carbon Dioxide 26, Anion Gap 6.6, BUN 12, Creatinine 0.90, Estimated Creat Clear 78, Estimated GFR 63, Est GFR ( Amer) 76 D, Glucose 105 H, Calcium 8.8 02/09/25 14:30 02/09/25 18:20 Orders (Tests/Meds): ED MEDICATIONS Discontinued Medications Generic Name Dose Route Start Last Admin Trade Name Freq PRN Reason Stop Dose Admin Sodium Chloride 1,000 mls @ 999 mls/hr 02/09/25 14:38 02/09/25 14:57 Sod Chlor 0.9% 1000ml Bag IV 02/09/25 15:38 999 mls/hr .Q1H1M ONE Administration Potassium Chloride/Water 100 mls @ 100 mls/hr 02/09/25 16:11 02/09/25 16:22 Potassium Chloride 10meq/100ml Ivpb IV 02/09/25 17:10 100 mls/hr ONCE ONE Administration Iopamidol 70 ml 02/09/25 16:40 02/09/25 16:41 Iopamidol-370 (76%);100ml Bottle IV 02/09/25 16:41 70 ml ONCE ONE Administration Potassium Chloride 40 meq 02/09/25 16:11 02/09/25 16:22 Potassium Chloride 20meq Tab PO 02/09/25 16:12 40 meq ONCE ONE Administration Sodium Chloride 50 ml 02/09/25 16:40 02/09/25 16:41 0.9 % Sodium Chloride 50 Ml Vial IV 02/09/25 16:41 50 ml ONCE ONE Administration Sodium Chloride 10 ml 02/09/25 16:40 02/09/25 16:41 Sodium Chloride 0.9% 10ml Syr (Rad Only) IV 02/09/25 16:41 10 ml ONCE ONE Administration ORDERS Category Date Time Status CTA Chest [CT angio chest PE protocol] Stat Cat Scan 02/09/25 16:10 Completed CXR --portable [XR chest portable] Stat Exams 02/09/25 14:38 Completed BMP [Basic Metabolic Panel] Stat Lab 02/09/25 18:20 Completed CBC w/Auto Diff [Complete Blood Count Auto Diff] Stat Lab 02/09/25 14:30 Completed CMP [Comprehensive Metabolic Panel] Stat Lab 02/09/25 14:30 Completed D-Dimer Stat Lab 02/09/25 14:30 Completed Trop I [Troponin I] Stat Lab 02/09/25 14:30 Completed Troponin I Q3H Lab 02/09/25 17:40 Completed Urinalysis and Microscopic Stat Lab 02/09/25 14:52 Completed Urine , HCG Qual. Stat Lab 02/09/25 14:52 Completed Medical Decision Narrative: In summary, patient is a 65-year-old female PMHx HTN, HLD, migraines who presents to the ED after 2 syncopal episodes that occurred prior to arrival. Patient states she was sitting at her family reunion at the picnic table when she passed out and laid her head on the table. Patient's family who was present at bedside states that they attempted to carry her over to the car and she was in and out of consciousness over the next 5 to 7 minutes. Patient remembers waking up with the car alert and oriented. She has no history of seizures. Family denies any seizure activity. She states that she did not have any chest pain or shortness of breath prior to the syncopal episode. She does state that over the past 3 nights she has had migraines and taking Maxalt for these which has resolved her headaches. No headache currently. She denies tobacco use, drugs, alcohol. Denies fever, chills, body aches, current headache, visual disturbances, posterior neck pain, chest pain, shortness of breath, abdominal pain, nausea, vomiting. Differential diagnosis include cardiac syncope, ACS, dissection, pulmonary embolism, infectious process, among others. Upon initial evaluation, patient is alert, oriented and cooperative. She is hemodynamically stable. Neuro status intact. Discussed with patient we will proceed with workup including labs, imaging and EKG. Patient will receive IV fluids while in the ED. CBC unremarkable for any leukocytosis, stable H&H. D-dimer 0.89, will proceed with CTA PE protocol. CMP remarkable for potassium of 2.9, will administer potassium runs and oral potassium. Creatinine 1.10, elevated from 0.80. First troponin < 0.01. Second troponin < 0.01. Chest CTA unremarkable for any pulmonary embolus, no aneurysm of the aorta, no dissection of the aorta, bowel thickening of the right colon and transverse colon may represent colitis in the appropriate setting and borderline splenomegaly 13 cm. Chest x-ray unremarkable for any acute findings. Upon reassessment, patient is ambulatory in the ED without difficulty. She remains alert and oriented, hemodynamically stable during her ED stay. I had the attending speak to the patient at discharge as well to assist in answering patient & family questions. I discussed that she will need to continue to take oral potassium and be reevaluated by her PCP. Discussed return precautions to the ED and patient verbalized understanding. Critical Care Critical Care Time Critical Care Time: No
[2025-02-09 14:45] LABS: Hematocrit 40.2 % (37.0-47.0); Hemoglobin 13.8 g/dL (12.2-16.2); Immature Granulocytes % 0.6 %; Mean Corpuscular HGB Conc 34.3 g/dL (31.8-35.4); Mean Corpuscular Hemoglobin 28.4 pg (27.0-31.2); Mean Corpuscular Volume 82.7 fl (81-99); Nucleated Red Blood Cells % 0 %; Platelet Count 190 K/mm3 (142-424); Red Blood Count 4.86 M/mm3 (4.20-5.40); Red Cell Distribution Width-SD 36.7 fL; White Blood Count 7.2 K/mm3 (4.8-10.8)
--- OUTSIDE RECORDS SUMMARY | 2025-02-09 14:46 | XMS_ITS | Patient Health Record ---
Author Organization [facility] Address [address] [facility] [address] [place] [address] Care Team Providers Care Food Demonstrator Name Role Phone Tsering Jones Primary Care Provider [phone] Migration, Provider Unavailable Unavailable Allergies No Known Allergies Medications Medication SIG (Take, Route, Frequency, Duration) [...] once a day; Duration: 30 day(s) Active Problems Problem Type SNOMED Code ICD Code Onset Dates Problem Status W/U Status Risk Notes Problem Essential hypertension (51652566) Essential (primary) hypertension (I10) Active confirmed Problem Gastroesophageal reflux disease (735595089) GERD (gastroesophageal reflux disease) (K21.9) Active confirmed Problem Vitamin D deficiency (09913476) Vitamin D deficiency (E55.9) Active confirmed Problem Hyperlipidaemia (70919395) Hyperlipidemia LDL goal <100 (E78.5) Active confirmed Problem Idiopathic peripheral neuropathy (45014330) Idiopathic peripheral neuropathy (G60.9) Active confirmed Problem BMI 30+ - obesity (209074546) BMI 32.0-32.9,adult (Z68.32) Active confirmed Problem Thyroid nodule (336481101) Thyroid nodule (E04.1) Active confirmed Problem Thyromegaly (6825323) Thyromegaly (E04.9) Active confirmed Problem Gastroesophageal reflux disease with esophagitis (242243463) Gastroesophageal reflux disease with esophagitis (K21.0) Active confirmed Problem Refractory migraine without aura (437225476) Intractable migraine without aura and without status migrainosus (G43.019) Active confirmed Problem Mild intermittent asthma (799292755) Mild intermittent allergic asthma without complication (J45.20) Active confirmed Encounters Encounter Location Date Provider Diagnosis [facility] [address] [facility] [address] [place] [address] 10/12/2024 Provider Migration Essential (primary) hypertension I10 Assessments Encounter Date Diagnosis (ICD Code) Assessment Notes Treatment Notes Treatment Clinical Notes Section Notes 10/12/2024 Essential (primary) hypertension (ICD-10 - I10) Plan Of Treatment Pending Test Test Name Order Date Mammogram : Diagnostic 08/31/2006 Mammogram : Right Breast 02/13/2008 Mammogram : Bilateral 02/01/2018 H-CMP 03/30/2017 H-LIPID PANEL 03/30/2017 C-CBC 02/01/2018 C-BASIC METABOLIC 02/01/2018 C-LIPID PANEL 02/01/2018 C-THYROID PROFILE 05/06/2015 VENIPUNCT, ROUTINE* 05/06/2015 VENIPUNCT, ROUTINE* 03/29/2016 M-Complete Blood Count Auto Diff 018 M-Comprehensive Metabolic Panel 03/28/20 18 M-Thyroid Panel 03/28/2018 M-Calcitonin 03/28/2018 M-Vitamin B12 02/09/2021 M-Vitamin D 25 Hydroxy 02/09/2021 M-Vitamin D 25 Hydroxy 04/08/2020 M-Vitamin D 25 Hydroxy 03/28/2018 M-Thyroid Peroxidase Antibodies 03/28/20 18 M-Thyroid Stimulating Immunoglob 018 Insurance Providers Payer Name Payer Address Payer Phone Subscriber Number Group Number Insured Name Patient Relationship to Insured Coverage Start Date Coverage End Date [facility] [address] [place] [address] [id number] Emely Zarate Self - patient is the insured Medications Administered Medication Instructions Date of Administration Dosage Notes Cyanocobalamin/B-12 Pt's Own Medication 02/10/2021 1 mL Cyanocobalamin/B-12 Pt's Own Medication 02/17/2021 1 mL Cyanocobalamin/B-12 Pt's Own Medication 02/24/2021 1 mL Cyanocobalamin/B-12 Pt's Own Medication 03/10/2021 1 mL Cyanocobalamin/B-12 Pt's Own Medication 03/17/2021 1 mL Cyanocobalamin/B-12 Pt's Own Medication 03/24/2021 1 mL Cyanocobalamin/B-12 Pt's Own Medication 04/01/2021 1 mL Cyanocobalamin/B-12 Pt's Own Medication 04/08/2021 1 mL Cyanocobalamin/B-12 Pt's Own Medication 04/15/2021 1 mL Cyanocobalamin/B-12 Pt's Own Medication 04/29/2021 1 mL Cyanocobalamin/B-12 Pt's Own Medication 05/06/2021 1 mL Cyanocobalamin/B-12 Pt's Own Medication 05/13/2021 1 mL Medical (General) History Medical History History ICD Code migraines GERD thyromegaly with multiple thyroid nodule s - Seen 2018 by [place] [facility] (Dr Nazario) Asthma HTN Left ankle fracture, 2013 Vitamin D deficiency Surgical History Surgery Date(Month/Year) hysterectomy C section x 2 gallbladder removed nasal surgery Hospitalization History Reason Date(Month/Year) inflamation around the muscle around her heart
[2025-02-09 14:56] LABS: Alanine Aminotransferase 27 U/L (12-78); Albumin Level 4.3 g/dl (3.5-5.0); Albumin/Globulin Ratio 1.5 (1.1-1.8); Alkaline Phosphatase 89 U/L (38-126); Anion Gap 11.9 mEq/L (5-15); Aspartate Amino Transferase 39 U/L (14-36); Bilirubin,Total 0.7 mg/dl (0.2-1.3); Blood Urea Nitrogen 14 mg/dl (7-17); Calcium 9.7 mg/dl (8.4-10.2); Carbon Dioxide 25 mmol/L (22.0-30.0); Chloride 102 mmol/L (98-107); Creatinine Clearance Estimated 71 mL/min (50-200); Creatinine,Serum 1.10 mg/dl (0.52-1.04); Estimated Glomerular Filt Rate 50 ml/min (>60); GFR (African American) 60 ML/MIN (>60); Globulin 2.9 g/dL (1.3-3.2); Glucose 120 mg/dl (74-100); Sodium 136 mmol/L (136-145); Total Protein,Serum 7.2 g/dl (6.3-8.2)
[2025-02-09] MEDS: 0.9 % SODIUM CHLORIDE 1000ML 1,000 ML 999 ML IV (14:57)
[2025-02-09 14:59] LABS: Microscopic, Urine URINE MICROSCOPIC (MICROSCOPIC)
[2025-02-09 15:00] LABS: D-Dimer 0.89 ug/mL (0.0-0.5)
[2025-02-09 15:03] LABS: Bilirubin,Urine Negative (Negative); Color,Urine YELLOW (Yellow); Glucose,Urine (UA) Negative (Negative); Ketones,Urine TRACE (Negative); Leukocyte Esterase,Urine Negative (Negative); PH,Urine 6.0 (5.0-8.5); Protein,Urine Negative (Negative); Specific Gravity, Urine 1.025 (1.005-1.030); Urobilinogen,Urine 1.0 EU/dl (0.2)
[2025-02-09 15:04] LABS: Urine Pregnancy, HCG Qual. Negative (Negative)
[2025-02-09 15:09] LABS: Bacteria,Urine Trace /lpf; Squamous Epithelial Cell,Urine Occasional #/hpf (0-5)
[2025-02-09 15:09] LABS: Troponin I < 0.01 ng/ml (0.00-0.034)
[2025-02-09 15:10] LABS: Potassium 2.9 mmoL/L (3.5-5.1)
--- NOTE | 2025-02-09 16:10 | CT_ITS ---
PROCEDURE INFORMATION: Exam: CTA Chest With Contrast Exam date and time: 02/09/2025 4:41 PM Age: 65 years old Clinical indication: Abnormal findings; Abnormal diagnostic tests; Elevated d-dimer; Other: Syncope; Additional info: Syncope/elevated dimer TECHNIQUE: Imaging protocol: Computed tomographic angiography of the chest with contrast. Exam focused on the arteries. 3D rendering (Not supervised by radiologist): MIP and/or 3D reconstructed images were created by the technologist. Radiation optimization: All CT scans at this facility use at least one of these dose optimization techniques: automated exposure control; mA and/or kV adjustment per patient size (includes targeted exams where dose is matched to clinical indication); or iterative reconstruction. Contrast material: ISOVUE 370; Contrast volume: 70 ml; Contrast route: INTRAVENOUS (IV); COMPARISON: CR XR CHEST PORTABLE 02/09/2025 2:45 PM FINDINGS: Pulmonary arteries: No evidence of pulmonary embolus to the segmental level. Aorta: No aneurysm of the aorta. No dissection of the aorta. Lungs: Unremarkable. No consolidation. No masses. Pleural spaces: Unremarkable. No pneumothorax. No pleural effusion. Heart: Unremarkable. No cardiomegaly. No pericardial effusion. Lymph nodes: Unremarkable. No enlarged lymph nodes. Gallbladder and biliary ducts: Cholecystectomy Pancreas: Pancreatic atrophy Spleen: Borderline splenomegaly 13 cm. Intestine: Bowel wall thickening in the right colon and transverse colon may represent colitis in the appropriate clinical setting . Bones/joints: Unremarkable. No acute fracture. Soft tissues: Unremarkable. IMPRESSION: 1. No evidence of pulmonary embolus to the segmental level. 2. No aneurysm of the aorta. 3. No dissection of the aorta. 4. Bowel wall thickening in the right colon and transverse colon may represent colitis in the appropriate clinical setting . 5. Borderline splenomegaly 13 cm.
[2025-02-09] MEDS: POTASSIUM CHLORIDE 20MEQ TAB 40 MEQ PO (16:22)
--- NOTE | 2025-02-09 16:38 | PC.NURSE ---
PT transported to radiology via stretcher by radiology staff.
[2025-02-09] MEDS: IOPAMIDOL-370 (76%);100ML BOTTLE 70 ML IV (16:41)
[2025-02-09] MEDS: 0.9 % SODIUM CHLORIDE 50 ML VIAL IV (16:41)
[2025-02-09] MEDS: SODIUM CHLORIDE 0.9% 10ML SYR (RAD ONLY) 10 ML IV (16:41)
[2025-02-09 18:31] LABS: Troponin I < 0.01 ng/ml (0.00-0.034)
[2025-02-09 18:33] LABS: Chloride 103 mmol/L (98-107)
[2025-02-09 18:34] LABS: Potassium 3.6 mmoL/L (3.5-5.1); Sodium 132 mmol/L (136-145)
[2025-02-09 18:36] LABS: Blood Urea Nitrogen 12 mg/dl (7-17); Creatinine Clearance Estimated 78 mL/min (50-200); Creatinine,Serum 0.90 mg/dl (0.52-1.04); Estimated Glomerular Filt Rate 63 ml/min (>60); GFR (African American) 76 ML/MIN (>60)
[2025-02-09 18:37] LABS: Anion Gap 6.6 mEq/L (5-15); Calcium 8.8 mg/dl (8.4-10.2); Carbon Dioxide 26 mmol/L (22.0-30.0); Glucose 105 mg/dl (74-100)
--- NOTE | 2025-02-09 18:47 | PC.NURSE ---
Contacted discharged PT r/t repeat K+ levels. PT had no further questions at this time.
== END 2025-02-09 18:36 | disposition home or self-care (01) ==
PROVIDERS: Nurse Practitioner; Emergency Provider Student in an Organized Health Care Education/Training Program
DX: R55 Syncope and collapse (principal); E78.6 Lipoprotein deficiency; E78.5 Hyperlipidemia, unspecified; I10 Essential (primary) hypertension
CPT/HCPCS: 71045; 71275; 80048; 80053; 81001; 81025; 84484; 85025; 85378; 93005; 96361; 96365; 99285; J3480; J7030; Q9967

== ENCOUNTER 2025-02-17 10:31 | Outpatient (CLI) | payer MEDICARE, SELFPAY ==
--- OUTSIDE RECORDS SUMMARY | 2024-10-12 17:30 | XMS_ITS ---
Author Organization [facility] Address [address] [facility] [address] [place] [address] Care Team Providers Care Fundraising Manager Name Role Phone Tsering Jones Primary Care Provider Migration, Provider Unavailable Unavailable [facility] Conversion Encounter Medications Medication SIG (Take, Route, [...] [address] [place] [address] 10/12/2024 Provider Migration Essential (primary) hypertension I10 [...] Notes * Emely JAIMESDOB:[birth year] (65 yo F)Acc No.[id number]:10/12/2024 Patient: Emely RUIZ Provider: Katy Horn :1960 A ge:64 Y S ex:Female Date:10/12/2024 Address:[address] [place], [place] [id number] Pcp:Tsering Jones Subjective: * Chief Complaints: * 1 . [facility] To [facility] Conversion Encounter. * Medical History: * Medications: [...] Electronic signature of Prov ider Migration on 02/18/2025 at 02:37 PM EDT Sign off status: Pending * Provider: Katy yadav Migration Date: 0 10/12/2024 Generated for Ced turk/Erwin/Yonasitting on: 0 02/18/2025 02:37 PM EDT"
[2025-02-17 17:01] LABS: Hematocrit 44.4 % (37.0-47.0); Hemoglobin 14.7 g/dL (12.2-16.2); Immature Granulocytes % 0.8 %; Mean Corpuscular HGB Conc 33.1 g/dL (31.8-35.4); Mean Corpuscular Hemoglobin 28.5 pg (27.0-31.2); Mean Corpuscular Volume 86.0 fl (81-99); Nucleated Red Blood Cells % 0 %; Platelet Count 259 K/mm3 (142-424); Red Blood Count 5.16 M/mm3 (4.20-5.40); Red Cell Distribution Width-SD 39.6 fL; White Blood Count 8.7 K/mm3 (4.8-10.8)
[2025-02-17 17:41] LABS: Chloride 104 mmol/L (98-107); Sodium 139 mmol/L (136-145)
[2025-02-17 17:42] LABS: Potassium 4.4 mmoL/L (3.5-5.1)
[2025-02-17 17:44] LABS: Blood Urea Nitrogen 11 mg/dl (7-17); Creatinine,Serum 0.80 mg/dl (0.52-1.04); Estimated Glomerular Filt Rate 72 ml/min (>60); GFR (African American) 87 ML/MIN (>60)
[2025-02-17 17:45] LABS: Anion Gap 15.4 mEq/L (5-15); Calcium 9.8 mg/dl (8.4-10.2); Carbon Dioxide 24 mmol/L (22.0-30.0); Glucose 97 mg/dl (74-100)
[2025-02-17 18:05] LABS: T4 (Thyroxine) 12.2 ug/dl (5.53-11.0)
[2025-02-17 18:16] LABS: Thyroid Stimulating Hormone 2.57 uIU/mL (0.465-4.68)
--- OUTSIDE RECORDS SUMMARY | 2025-02-18 14:38 | XMS_ITS | Patient Health Record ---
Author Organization [facility] Address [address] [facility] [address] [place] [address] Care Team Providers Care Relays Draftsperson Name Role Phone Tsering Jones Primary Care Provider Migration, Provider Unavailable Unavailable Allergies No Known [...] W/U Status Risk Notes Problem Essential hypertension (92768813) Essential (primary) hypertension (I10) Active confirmed Problem Gastroesophageal reflux disease (349104058) GERD (gastroesophageal reflux disease) (K21.9) Active confirmed Problem Vitamin D deficiency (82468429) Vitamin D deficiency (E55.9) Active confirmed Problem Hyperlipidaemia (64179925) Hyperlipidemia LDL goal <100 (E78.5) Active confirmed Problem Idiopathic peripheral neuropathy (91512669) Idiopathic peripheral neuropathy (G60.9) Active confirmed Problem BMI 30+ - obesity (922987130) BMI 32.0-32.9,adult (Z68.32) Active confirmed Problem Thyroid nodule (489404829) Thyroid nodule (E04.1) Active confirmed Problem Thyromegaly (6102424) Thyromegaly (E04.9) Active confirmed Problem Gastroesophageal reflux disease with esophagitis (964442803) Gastroesophageal reflux disease with esophagitis (K21.0) Active confirmed Problem Refractory migraine without aura (784666477) Intractable migraine without aura and without status migrainosus (G43.019) Active confirmed Problem Mild intermittent asthma (104046017) Mild intermittent allergic asthma without complication (J45.20) Active confirmed Encounters Encounter Location Date Provider Diagnosis [facility] [address] [facility] [address] [place] [address] 10/12/2024 Provider Migration Essential (primary) hypertension I10 [...] Insured Coverage Start Date Coverage End Date [facility] [address] [place] [address] [id number] Emely Zarate Self - patient is the [...]
== END 2025-02-17 23:59 | disposition home or self-care (01) ==
LOC: LAB.DROPOF 02-18 14:35
PROVIDERS: PCP Family Medicine; Visit Provider Family Medicine
DX: E78.5 Hyperlipidemia, unspecified (principal); R55 Syncope and collapse; R89.9 Unspecified abnormal finding in specimens from other organs, systems and tissues; E04.2 Nontoxic multinodular goiter; E87.6 Hypokalemia
CPT/HCPCS: 80048; 84436; 84443; 85025

== ENCOUNTER 2025-03-03 12:20 | Outpatient (CLI) | payer MEDICARE, SELFPAY ==
--- OUTSIDE RECORDS SUMMARY | 2024-10-12 17:30 | XMS_ITS ---
Author Organization [facility] Address [address] [facility] [address] [place] [address] Care Team Providers Care Clay Shop Supervisor Name Role Phone Tsering Jones Primary Care Provider [phone] Migration, Provider Unavailable Unavailable [facility] Con[facility] Encounter Medications Medication SIG (Take, Route, Frequency, Duration) Notes Start Date End Date Status Cyanocobalamin 1000 MCG/ML 1ml intramuscularly once a week; Duration: 90 days 02/10/2021 Active Zestoretic 10-12.5 MG 1 tab(s) orally once a day; Duration: 90 days Active Ventolin HFA 108 (90 Base) MCG/ACT 2 puff(s) inhaled every 4 hours PRN asthma symptoms; Duration: 30 days Active 3CC SYRINGES AND 23 GAUGE NEEDLES USE WEEKLY FOR B12 INJECTIONS; Duration: 90 DAYS *Please review for potential replacement for e-prescription and drug interaction check* 02/10/2021 Active PriLOSEC OTC 20 MG 1 tab(s) orally once a day; Duration: 90 days Active Vitamin D3 25 MCG (1000 UT) as directed orally once a day; Duration: 30 day(s) Active Encounters Encounter Location Date Provider Diagnosis [facility] [address] [place] [address] 10/12/2024 Provider Migration Essential (primary) hypertension I10 Assessments Encounter Date Diagnosis (ICD Code) Assessment Notes Treatment Notes Treatment Clinical Notes Section Notes 10/12/2024 Essential (primary) hypertension (ICD-10 - I10) Plan Of Treatment Medication Medication Name Sig Start Date Stop Date Notes Cyanocobalamin 1000 MCG/ML 1ml intramuscularly once a week; Duration: 90 days 02/10/2021 Zestoretic 10-12.5 MG 1 tab(s) orally on ce a day; Duration: 90 days 3CC SYRINGES AND 23 GAUGE NEEDLES USE WEEKLY FOR B12 INJECTIONS; Duration: 90 DAYS 02/10/2021 *Please review for potential replacement for e-prescription and drug interaction check* PriLOSEC OTC 20 MG 1 tab(s) orally once a day; Duration: 90 days Progress Notes * Emely JAIMESDOB:[birth year] (65 yo F)Acc No.[id number]:10/12/2024 Patient: Emely RUIZ Provider: Katy Horn :1960 A ge:64 Y S ex:Female Date:10/12/2024 Address:[address] [place], [place] [id number] Pcp:Tsering Jones Subjective: * Chief Complaints: * 1 . [facility] To [facility] Conversion Encounter. * Medical History: * Medications: T aking Vitamin D3 25 MCG (1000 UT) Tablet as directed orally once a day , Taking Ventolin HFA 108 (90 Base) MCG/ACT Aerosol Solution 2 puff(s) inhaled every 4 hours PRN asthma symptoms Objective: * Vitals: Assessment: * Assessment: 1. E ssential (primary) hypertension - I10 Plan: * Treatment: 2. O thers Start Cyanocobalamin Solution, 1000 MCG/ML, 1ml, intramuscularly, once a week, 90 days, 12, Refills 0; S tart 3CC SYRINGES AND 23 GAUGE NEEDLES, USE WEEKLY FOR B12 INJECTIONS, 90 DAYS, 12, Refills 0, Notes to Pharmacist: *Please review for potential replacement for e-prescription and drug interaction check*; R efill PriLOSEC OTC Tablet Delayed Release, 20 MG, 1 tab(s), orally, once a day, 90 days, 90 Tablet, Refills 3. * * Electronic signature of Prov ider Migration on 03/03/2025 at 12:28 PM EDT Sign off status: Pending * Provider: Katy yadav Migration Date: 0 10/12/2024 Generated for Ced turk/Erwin/Yonasitting on: 0 03/03/2025 12:28 PM EDT
--- OUTSIDE RECORDS SUMMARY | 2025-03-03 12:28 | XMS_ITS | Patient Health Record ---
Author Organization [facility] Address [address] [facility] [address] [place] [address] Care Team Providers Care Kennel Aide Name Role Phone Tsering Jones Primary Care [...] W/U Status Risk Notes Problem Essential hypertension (43234441) Essential (primary) hypertension (I10) Active confirmed Problem Gastroesophageal reflux disease (407048913) GERD (gastroesophageal reflux disease) (K21.9) Active confirmed Problem Vitamin D deficiency (66623983) Vitamin D deficiency (E55.9) Active confirmed Problem Hyperlipidaemia (17182021) Hyperlipidemia LDL goal <100 (E78.5) Active confirmed Problem Idiopathic peripheral neuropathy (65081351) Idiopathic peripheral neuropathy (G60.9) Active confirmed Problem BMI 30+ - obesity (946688295) BMI 32.0-32.9,adult (Z68.32) Active confirmed Problem Thyroid nodule (471483114) Thyroid nodule (E04.1) Active confirmed Problem Thyromegaly (6563759) Thyromegaly (E04.9) Active confirmed Problem Gastroesophageal reflux disease with esophagitis (593545194) Gastroesophageal reflux disease with esophagitis (K21.0) Active confirmed Problem Refractory migraine without aura (051965883) Intractable migraine without aura and without status migrainosus (G43.019) Active confirmed Problem Mild intermittent asthma (162849909) Mild intermittent allergic asthma without complication (J45.20) Active confirmed Encounters Encounter Location Date Provider Diagnosis [facility] [address] [facility] [address] [place] [address] 10/12/2024 Provider Migration Essential (primary) hypertension I10 [...] Insured Coverage Start Date Coverage End Date [facility] [address] [place] [address] [id number] Emely Zarate Self - patient is the [...]
[2025-03-03] MEDS: SODIUM CHLORIDE 0.9% 10ML SYR (RAD ONLY) 10 ML IV (13:02)
[2025-03-03] MEDS: IOPAMIDOL-300 (61%) 100ML VIAL 100 ML IV (13:03)
--- NOTE | 2025-03-03 13:45 | CA_ITS ---
APPROVED REPORT EXAM: Comprehensive 2D, Doppler, and color-flow Echocardiogram Statistics Manager: Ilana Kinney, RT(R) Ht: 5 ft 5 in Wt: 190lbs BSA: 1.94 BP: 126/88 mmHg Indications: fatigue, near syncope, hypokalemia 2D Dimensions LVEF (Reeves's) 70.80 % F: 54 - 74 LV Volume 83.10 mL F: 46 - 106 LV Volume Index 42.8 mL/m2 F: 29 - 61 LA Volume 29.20 mL LA Volume Index 15.05 mL/m2 (M/F) 16-34 EF AP4 63.00 % EF AP2 75.0 % EF BP 70.8 % GL Strain -18.4 % M-Mode Dimensions RVDd 2.96 cm (0.9-2.6) LA Diam 3.79 cm (1.9-4.0) LVDd 4.06 cm (3.5-5.7) LVDs 2.66 cm (3.5-5.7) IVSd 0.97 cm (0.6-1.1) PWd 0.85 cm (0.6-1.1) EF (Teich) 64.10% FS 34.50% EDV (Teich) 72.50 mL ESV (Teich) 26.00 mL LV Diastology E Decel Time 207 (160-240 msec) E/A Ratio 0.9 Mitral Valve MV E Max Giovanny. 69.0 (40-130 cm/s) MV A Velocity 80.0 (40-130 cm/s) E/A Ratio 0.87 MV PHT 61.0 ms Left Ventricle The left ventricle is normal size. Left ventricular systolic function is normal. The left ventricular ejection fraction is within the normal range. There is normal left ventricular wall thickness. There is normal LV segmental wall motion. The left ventricular diastolic function is normal. LVEF is 55% Right Ventricle The right ventricle is not very well visualized, but grossly appears normal in size and function. Atria The left atrium size is normal. The right atrium size is normal. There is no color Doppler evidence of interatrial shunt. Aortic Valve The aortic valve opens well. There is no hemodynamically significant aortic valvular stenosis. No aortic regurgitation is present. Mitral Valve The mitral valve is normal in structure. No evidence of mitral valve stenosis. Trace mitral regurgitation is present. Tricuspid Valve The tricuspid valve leaflets are thin and pliable. Trace tricuspid regurgitation. There is insufficient TR jet to estimate RVSP. Pulmonic Valve The pulmonary valve is grossly normal in structure. Trace pulmonic valve regurgitation is present. Great Vessels The aortic root is normal in size. The IVC is not well-visualized. Pericardium Trivial anterior pericardial effusion is present. No clear echo indications of tamponade. Other Information Study Quality: Technically Difficult Conclusion Technically difficult study. Grossly, normal biventricular systolic function. No significant valvular stenosis or regurgitation. Trivial anterior pericardial effusion is present. No clear echo indications of tamponade. Electronically signed by : Mami Perkins MD 03/04/2025 00:31:48
--- NOTE | 2025-03-03 14:08 | CA_ITS ---
FINAL REPORT TECHNIQUE: Xavier scale, color and spectral doppler images of the bilateral carotid arteries were obtained. CLINICAL HISTORY: SYNCOPE COMPARISON: None FINDINGS: Peak systolic velocity in the right internal carotid artery is 72 cm/sec. The internal carotid to common carotid artery ratio is 1.6. There is no significant carotid artery stenosis and mild plaque formation. The right vertebral artery is normal in direction. Peak systolic velocity in the left internal carotid artery is 89 cm/sec. The internal carotid to common carotid artery ratio is 1.8. There is no significant carotid artery stenosis and mild plaque formation. The left vertebral artery is normal in direction. IMPRESSION: No ultrasound evidence of hemodynamically significant carotid artery stenosis. Normal peak systolic velocities and normal internal to common carotid artery ratios bilaterally. Reviewed, Interpreted and Dictated by Vandana Betancourt MD Transcribed by Edwina Mitchell Authenticated and [facility]
--- NOTE | 2025-03-03 15:15 | CT_ITS ---
FINAL REPORT TECHNIQUE: Thin section axial images were obtained from skull base to vertex without and with contrast. Coronal reconstruction images were obtained from the axial data. Exam was performed using dose reduction techniques such as automated exposure control, adjustment of the mA and kV according to patient size, and use of iterative reconstruction technique. CLINICAL HISTORY: syncope; headache COMPARISON: None FINDINGS: There is no mass effect or midline shift. There is no hydrocephalus. There is no intracranial hemorrhage. The posterior fossa is without acute abnormality. The basilar cisterns are preserved. The soft tissues are without acute abnormality. No acute osseous abnormality is identified. Postcontrast images demonstrate no abnormal enhancement. IMPRESSION: Unremarkable CT of the head with and without contrast. Reviewed, Interpreted and Dictated by Vandana Betancourt MD Transcribed by Norma Paul Authenticated and . [facility]
== END 2025-03-03 23:59 | disposition home or self-care (01) ==
LOC: RAD 12:20
PROVIDERS: PCP Family Medicine; Visit Provider Family Medicine
DX: R89.9 Unspecified abnormal finding in specimens from other organs, systems and tissues (principal); R55 Syncope and collapse; R51.9 Headache, unspecified; E87.6 Hypokalemia; R53.83 Other fatigue
CPT/HCPCS: 70470; 76536; 93306; 93880; Q9967